=== PATIENT | female | born 1950 | race Caucasian/White ===

== ENCOUNTER 2024-07-28 18:30 | Emergency (ER) | payer SELFPAY ==
--- NOTE | ~2024-07-28 | CT_ITS ---
CLINICAL HISTORY: fall CT head without contrast Comparison: None Findings: No acute intracranial hemorrhage. Mild white matter lesions likely due to small-vessel ischemic disease. No large arterial territorial infarction by CT. Mild volume loss is generalized. Cavum velum interpositum. Artifacts noted including portions of the parietal and occipital lobes. Soft tissue swelling scalp hematoma including of the left frontal convexity. Left-sided periorbital soft tissue swelling appears preseptal. Left lateral parietal scalp calcification is nonspecific and likely chronic. No acute skull fracture. Mild mucosal thickening of the imaged paranasal sinuses. Imaged mastoid air cells are well aerated. IMPRESSION: 1. No acute intracranial abnormality by CT. This document has been electronically signed by: Gwyn Santana MD on 07/28/2024 21:01:19
--- NOTE | ~2024-07-28 | CT_ITS ---
CLINICAL HISTORY: fall CT cervical spine without contrast Comparison: None Findings: No acute fracture of the cervical spine. Mild anterolisthesis at C3-C4. Disc osteophyte complexes with mild spinal canal stenosis from C3-C4 to C6-C7. Multifocal foraminal narrowing including moderate left-sided foraminal narrowing from C4-C5 to C6-C7 and moderate to severe foraminal narrowing on the right at C5-C6. Facet arthropathy and ligament calcifications are multifocal. No paraspinal hematoma. Vascular calcifications of the metal artifacts noted. Enlargement of the imaged left lobe of the thyroid is nonspecific question 3 cm nodule. Trachea is deviated to the right. IMPRESSION: 1. No acute fracture of the cervical spine. 2. Enlargement of the left lobe of the thyroid with [address] Recommend outpatient thyroid ultrasound This document has been electronically signed by: Gwyn Santana MD on 07/28/2024 20:48:08
--- NOTE | ~2024-07-28 | XR_ITS ---
CLINICAL HISTORY: fall --- Additional Notes or Special Instructions: pt collared 1935 - CF 2 view left shoulder Comparison: None Findings: Lucency of the inferior medial aspect of the left humerus head appears old/chronic. No acute displaced fracture or dislocation of the left shoulder. Left inferior glenoid irregularity appears chronic given sclerosis. Mild moderate osteoarthritis of the left glenohumeral joint. Mild to moderate osteoarthritis of the left AC joint. Bilateral pulmonary opacities nonspecific and may reflect combination of the atelectasis, pneumonitis , and pulmonary edema. Emphysematous changes also in the [id number]. Mediastinum accentuated by AP magnification. Superficial opacities present. IMPRESSION: 1. No acute fracture or dislocation of the left shoulder. 2. Mild-moderate osteoarthritis of the left shoulder. This document has been electronically signed by: Gwyn Santana MD on 07/28/2024 21:56:56
[2024-07-28 18:38] VITALS: BP 174/116; PULSE 76; O2SAT 99
[2024-07-28 18:41] VITALS: BP 191/115; PULSE 96; RESP 18; O2SAT 100; BMI 29.0
[2024-07-28 18:45] VITALS: BP 177/96; PULSE 98; RESP 18; TEMP 36.8; O2SAT 100
[2024-07-28 18:49] VITALS: BP 177/96; PULSE 98; RESP 18; TEMP 36.8; O2SAT 100
--- NOTE | 2024-07-28 19:15 | ED.FALL ---
HPI - Fall General Chief Complaint: Fall Stated Complaint: fall, headstrike, facial injury, hematoma on L eye Time Seen by Provider: 07/28/24 18:44 Source: patient Mode of arrival: EMS Limitations: no limitations History of Present Illness ED Provider: HPI Narrative: Patient apparently trying to get out of the house for got there was a step tripped and fell tried to break the fall with her left hand complaining of pain in the left shoulder and swelling of the left forehead no loss of consciousness no other injuries patient not on any anticoagulation Related Data Allergies Allergy/AdvReac Type Severity Reaction Status Date / Time Sulfa (Sulfonamide Allergy Unknown Verified 07/28/24 18:45 Antibiotics) Review of Systems Review of Systems: Yes all other systems are reviewed and are negative [facility] Social History Social History Alcohol intake: never Smoked in Last 30 Days: No Use of substances other than those prescribed or required for medical reasons: No Advance Directives: No Advance Directives Information Provided: Yes Physical Exam Vital Signs: Vital Signs: Last Vital Signs Temp 0 F L 07/28/24 22:54 Pulse 82 07/28/24 22:54 Resp 16 07/28/24 22:54 BP 127/79 07/28/24 22:54 Pulse Ox 96 07/28/24 22:54 O2 Del Method Room Air 07/28/24 22:54 BMI result Body Mass Index 29.0 Appearance: Alert. Oriented X3. No acute distress. Eyes: No pallor or icterus ENT: Pharynx normal. Oral Mucosa moist Neck: Normal inspection. Neck supple. No midline tenderness CVS: Normal heart rate and rhythm. Pulses normal. Respiratory: No respiratory distress. Equal air entry bilateral, no wheezing/rales/rhonchi Abdomen: Soft and nontender. Bowel sounds are present, no mass palpable, no CVA tenderness Skin: Skin warm and dry. Normal skin color. Normal skin turgor. Extremities: No lower extremity edema. No calf tenderness, diffuse tenderness left shoulder no deformity Neuro: Oriented X 3. No motor deficit. No sensory deficit.No cerebellar signs , cranial nerves II-XII intact Medical Decision Making Medical Decision Making MDM Narrative: Patient is status post mechanical fall head CT negative for acute cervical spine also negative for acute shoulder x-ray also negative for fracture patient is able to ambulate in the ED able to move her left arm without any difficulty will discharge patient home Independent Interpretation I performed an independent interpretation of an: Plain X-Ray and CT Scan Interpretation: No acute fracture Radiology Impression Discussion of test interpretation with radiology: I have reviewed the radiologist's reading. Discharge Plan Discharge Clinical Impression: Fall (on) (from) other stairs and steps, initial encounter Patient Disposition: Home, Self-Care Instructions: Fall Prevention (ED) Additional Instructions: Care and cautions as advised Tylenol/Motrin for pain Interventions: ED Discharge Assessment Last Done: 07/28/24 22:54 Discharge Date/Time: 07/28/24 22:56 Print Language: Luxembourger
[2024-07-28 21:25] VITALS: BP 141/84; PULSE 80; TEMP 36.5; O2SAT 96
--- OUTSIDE RECORDS SUMMARY | 2024-07-28 21:52 | XMS_ITS | Clinical Summary ---
Author Organization [facility] Address [address] [place] [id number] Care Team Providers Care Contract Law Specialist Name Role Phone Pcp), No Pcp (Pt Has No Primary Care Provider Un available Allergies Active Allergy Reactions Criticality Noted Date Comments Sulfa (Sulfonamide Antibiotics) Other (see comments) 10/05/2017 Hallucinations Medications ibuprofen (ADVIL,MOTRIN) 600 MG tablet Take 1 tablet (600 mg per dose) by mouth every 6 (six) hours as needed (PAIN / INFLAMMATIO N). 20 tablet 10/05/2017 Active Social History Tobacco Use Types Packs/Day Years Used Date Smoking Tobacco: Never Smokeless Tobacco: Never Alcohol Use Standard Drinks/Week Comments No 0 (1 standard drink = 0.6 oz pur e alcohol) Comments Unknown Sex and Gender Information Value Date Recorded Sex Assigned at Not on file Legal Sex Female 4:48 AM EDT Gender Identity Not on file Sexual Orientation Not on file Last Filed Vital Signs Vital Sign Reading Time Taken Comments Blood Pressure 129/72 10/05/2017 6:19 AM EDT Pulse 89 10/05/2017 6:19 AM EDT Temperature 36.5 ??C (97.7 ??F) 10/05/2017 4:50 AM ED T Respiratory Rate 18 10/05/2017 6:19 AM EDT Oxygen Saturation 97% 10/05/2017 6:19 AM EDT Inhaled Oxygen Concentration - - Weight - - Height - - Body Mass Index - - Plan of Treatment Not on file Care Teams Contract Law Specialist Relationship Specialty Start Date End Date Pcp), No Pcp (Pt Has No PT HAS NO PCP PCP - General 10/05/17
[2024-07-28 22:54] VITALS: BP 127/79; PULSE 82; RESP 16; TEMP -17.7; TEMP 0; O2SAT 96
== END 2024-07-28 22:56 | disposition home or self-care (01) ==
PROVIDERS: Emergency Provider Internal Medicine
DX: M25.512 Pain in left shoulder (principal); Z91.81 History of falling
CPT/HCPCS: 70450; 72125; 73030; 99284

== ENCOUNTER → 2024-07-28 19:20 | Outpatient (BNV) | payer SELFPAY | PROVIDERS: Emergency Provider Internal Medicine; Visit Provider Radiology Neuroradiology | DX: E04.1 Nontoxic single thyroid nodule (principal); S00.03XA Contusion of scalp, initial encounter; M19.012 Primary osteoarthritis, left shoulder; W19.XXXA Unspecified fall, initial encounter | CPT/HCPCS: 70450; 72125; 73030 ==

== ENCOUNTER 2024-08-01 16:26 | Emergency (ER) | payer SELFPAY ==
--- NOTE | ~2024-08-01 | XR_ITS ---
CLINICAL HISTORY: trauma Single view of the chest with left rib films. COMPARISON: None FINDINGS: Normal heart and mediastinal contours. No consolidation. No pleural effusion or pneumothorax. Minimally displaced lateral left 7th rib fracture. Likely nondisplaced lateral left 8th rib fracture. IMPRESSION: 1. Minimally displaced lateral left 7th rib fracture. Likely nondisplaced lateral left 8th rib fracture. This document has been electronically signed by: Sekou Ward MD on 08/01/2024 17:41:19
--- NOTE | ~2024-08-01 | CT_ITS ---
CLINICAL HISTORY: left rib fx,multipe fxs? CT chest without contrast Comparison: CR - XR RIBS LT MIN 3V W CXR1V - 08/01/24 17:16 EDT Findings: Heart size is normal. Within the left lobe of the thyroid gland there is a cystic 3.3 cm lesion. Right lobe of the thyroid gland is normal. No pleural effusion. No pneumothorax. Lungs are clear. The visualized upper abdomen is unremarkable. There is a dextroscoliosis of the thoracolumbar junction with a rotatory component. Minimally displaced lateral left 7th rib fracture. Other rib fracture seen. Multilevel degenerative changes of the thoracic spine. Thoracic vertebral body heights are preserved. No acute fracture deformity of the thoracic spine. No fracture deformity of the sternum. IMPRESSION: 1. Minimally displaced lateral left 7th rib fracture. 2. Cystic lesion within the left thyroid lobe measuring 3.3 cm. This document has been electronically signed by: Arturo Clark MD on 08/01/2024 21:48:09
[2024-08-01 16:32] VITALS: BP 151/74; PULSE 88; RESP 16; TEMP 36.4; O2SAT 97; BMI 27.4
--- NOTE | 2024-08-01 16:34 | ECG_ITS ---
Test Reason : PAIN Blood Pressure : */* mmHG Vent. Rate : 83 BPM Atrial Rate : 83 BPM P-R Int : 132 ms QRS Dur : 76 ms QT Int : 380 ms P-R-T Axes : 140 -20 108 degrees QTcB Int : 446 ms Unusual P axis, possible ectopic atrial rhythm Cannot rule out Anterior infarct , age undetermined Abnormal ECG No previous ECGs available Referred By: Stewart Teixeira Electronically Signed By: Jose Christy
--- NOTE | 2024-08-01 16:35 | ED_ITS ---
HPI - General Adult General Chief complaint: General Medical Stated complaint: Fall - wrist & rib pain Time Seen by Provider: 08/01/24 19:09 Source: patient Limitations: no limitations History of Present Illness ED Provider: Mily Mendoza PA-C HPI narrative: 74-year-old female presents with left chest wall pain x1 week. Patient states she tripped and fell last week, landing on her left side. She has had ongoing rib pain that has worse today. Denies shortness of breath, cough or fever. Patient is not on a blood thinner. Related Data Allergies Allergy/AdvReac Type Severity Reaction Status Date / Time Sulfa (Sulfonamide Allergy Unknown Verified 08/01/24 16:35 Antibiotics) Review of Systems 2 Review of Systems: Yes all other systems are reviewed and are negative Constitutional: Constitutional: Denies fatigue and Denies fever(s) Cardiovascular: Cardiovascular: Reports chest pain and Denies dyspnea Respiratory: Respiratory: Denies chest congestion, Denies cough and Denies dyspnea Gastrointestinal: Gastrointestinal: Denies abdominal pain, Denies nausea and Denies vomiting Endocrine: Endocrine: Denies fatigue [facility] Past Medical History Attestation statement: The following information was validated with the patient. Social History Social History Alcohol intake: never Smoked in Last 30 Days: No Use of substances other than those prescribed or required for medical reasons: No Advance Directives: No Advance Directives Information Provided: No Do you have a plan to hurt others: No Plan Physical Exam ED Vital Signs: Vital Signs - 24 hr 08/01/24 16:32 08/01/24 17:50 08/01/24 19:52 Temperature 97.5 F 98.4 F 97.8 F Pulse Rate 88 78 82 Respiratory Rate 16 15 18 Blood Pressure 151/74 H 142/70 H 155/77 H Pulse Oximetry 97 99 100 Oxygen Delivery Method Room Air Room Air Room Air 08/01/24 21:48 Temperature 97.8 F Pulse Rate 79 Respiratory Rate 16 Blood Pressure 150/78 H Pulse Oximetry 96 Oxygen Delivery Method Room Air BMI result Body Mass Index 27.4 Const Other: Alert well-appearing Orientation/consciousness: patient oriented x3 Eyes Other: Subacute periorbital ecchymosis on the left Resp Effort & Inspection: normal respiratory effort Cardio Other: Normal peripheral perfusion Skin Other: Warm dry no rash Neuro General: patient oriented x3, gait normal, no focal motor deficits and CN's II- XI intact bilaterally Psych Other: Cooperative Course Course Course Narrative: RME, this is a rapid medical exam performed by Miguel Teixeira please refer to primary provider for complete H&P- 74-year-old female presents for evaluation of left chest wall pain after falling 4 days ago. She was seen here and had imaging of her head, cervical spine and shoulder but not of the ribs or chest. Plan for labs, EKG and x-ray of the ribs with PA chest. Medical Decision Making Medical Decision Making [facility] Narrative: 74-year-old female presents with left chest wall pain x1 week. Patient states she tripped and fell last week, landing on her left side. She has had ongoing rib pain that has worse today. Denies shortness of breath, cough or fever. Patient is not on a blood thinner. No relevant chronic issues History: Per patient I have considered the following differential diagnoses: Chest wall contusion, rib fracture, pneumonia, lung contusion Plan: Chest x-ray reveals isolated rib fracture with a questionable rib fracture of the 8th rib on the left, we will obtain a CT scan. The patient's pain is currently controlled. There was no pneumonia on chest x-ray. Chest x-ray: MPRESSION: 1. Minimally displaced lateral left 7th rib fracture. Likely nondisplaced lateral left 8th rib fracture. CT chest:MPRESSION: 1. Minimally displaced lateral left 7th rib fracture. 2. Cystic lesion within the left thyroid lobe measuring 3.3 cm. Lab Data 08/01/24 16:59 08/01/24 16:59 Labs: Lab Results 08/01/24 Range/Units 16:59 WBC 11.6 H (4.8-10.8) X10*3/uL RBC 4.06 L (4.20-5.50) X10*6/uL Hgb 11.2 L (12.0-16.0) g/dl Hct 36.2 L (37.0-47.0) % MCV 89.2 (80.0-98.0) fL MCH 27.6 (27.0-33.0) pg MCHC 30.9 L (31.0-35.0) g/dl RDW 13.8 (11.0-16.0) % Plt Count 369 (160-400) X10*3/uL MPV 10.1 (9.4-12.3) fL Immature Gran % (Auto) 0.4 (0.0-0.4) % Neut % (Auto) 65.7 (45-73) % Lymph % (Auto) 22.5 (20-40) % Harnett % (Auto) 8.3 (2-11) % Eos % (Auto) 2.4 (0-4) % Baso % (Auto) 0.7 (0-2) % Lymph # (Auto) 2.6 (1.2-4.9) X10*3/uL Harnett # (Auto) 1.0 (0.1-1.2) X10*3/uL Eos # (Auto) 0.3 (0.0-0.4) X10*3/uL Baso # (Auto) 0.1 (0.0-0.2) X10*3/uL Abs Immat Gran (auto) 0.05 H (0.00-0.03) X10*3/uL Absolute Neuts (auto) 7.6 (2.0-8.3) x10*3/uL Absolute Nucleated RBC 0.000 (0.0-0.012) X10*3/uL Nucleated RBC % (auto) 0.0 (0.0-0.2) /100WBC Sodium 141 (135-145) mmol/L Potassium 4.3 (3.3-5.1) mmol/L Chloride 109 H (96-108) mmol/L Carbon Dioxide 24 (22-29) mmol/L Anion Gap 12 (12-20) BUN 24 H (9-16) mg/dL Creatinine 0.92 (0.5-1.4) mg/dL Estim Creat Clear Calc 58.1 Estimated GFR 60 Random Glucose 102 (60-115) mg/dL Calcium 9.2 (8.4-10.2) mg/dL Total Bilirubin 0.2 (0.0-1.0) mg/dL AST 23 (5-31) U/L ALT 19 (0-31) U/L Alkaline Phosphatase 101 (39-117) U/L Troponin I High Sens < 2.7 (<3.5-17.0) ng/L Total Protein 7.2 (6.5-8.0) g/dL Albumin 4.2 (3.5-5.0) g/dL Lipase 43 (8-78) U/L Discharge Plan Discharge Clinical Impression: Fracture of left seventh rib, Left thyroid nodule Patient Disposition: Home, Self-Care Instructions: Rib Fracture (ED), Thyroid Nodules (ED) Additional Instructions: The CT scan revealed that you have a rib fracture of the 7th rib. See home care instructions. You were incidentally found to have a 3.3 cm cyst on the left thyroid. Call your primary care provider, you will require an outpatient ultrasound for further assessment. You can use [id number] Tylenol 1000 mg taken every 8 hours, alternated with [id number] ibuprofen 600 mg taken every 6 hours with food. Print Language: Kosovan
[2024-08-01 17:04] LABS: MANUAL DIFF FLAG NO
[2024-08-01 17:11] LABS: Basophils Absolute Auto 0.1 X10*3/uL (0.0-0.2); Basophils Percent Auto 0.7 % (0-2); Eosinophils Absolute Auto 0.3 X10*3/uL (0.0-0.4); Eosinophils Percent Auto 2.4 % (0-4); Hematocrit 36.2 % (37.0-47.0); Hemoglobin 11.2 g/dl (12.0-16.0); Imm Gran Abs Auto 0.05 X10*3/uL (0.00-0.03); Imm Gran Pct Auto 0.4 % (0.0-0.4); Lymphocytes Absolute Auto 2.6 X10*3/uL (1.2-4.9); Lymphocytes Percent Auto 22.5 % (20-40); Mean Corpuscular HGB Conc 30.9 g/dl (31.0-35.0); Mean Corpuscular Hemoglobin 27.6 pg (27.0-33.0); Mean Corpuscular Volume 89.2 fL (80.0-98.0); Mean Platelet Volume 10.1 fL (9.4-12.3); Monocytes Percent Auto 8.3 % (2-11); Neutrophils Absolute Auto 7.6 x10*3/uL (2.0-8.3); Neutrophils Percent Auto 65.7 % (45-73); Platelet Count 369 X10*3/uL (160-400); Red Blood Count 4.06 X10*6/uL (4.20-5.50); Red Cell Distribution Width 13.8 % (11.0-16.0); White Blood Count 11.6 X10*3/uL (4.8-10.8)
[2024-08-01 17:19] LABS: Alanine Aminotransferase 19 U/L (0-31); Albumin Level 4.2 g/dL (3.5-5.0); Alkaline Phosphatase 101 U/L (39-117); Anion Gap 12 (12-20); Aspartate Amino Transferase 23 U/L (5-31); Bilirubin Total 0.2 mg/dL (0.0-1.0); Blood Urea Nitrogen 24 mg/dL (9-16); Calcium 9.2 mg/dL (8.4-10.2); Carbon Dioxide 24 mmol/L (22-29); Chloride 109 mmol/L (96-108); Creatinine Clr Calc Pharmacy 58.1; Estimated Glomerular Filt Rate 60; Glucose Random 102 mg/dL (60-115); Lipase 43 U/L (8-78); Potassium 4.3 mmol/L (3.3-5.1); Sodium 141 mmol/L (135-145); Total Protein 7.2 g/dL (6.5-8.0)
[2024-08-01 17:28] LABS: Troponin-I High Sensitivity < 2.7 ng/L (<3.5-17.0)
[2024-08-01 17:50] VITALS: BP 142/70; PULSE 78; RESP 15; TEMP 36.9; O2SAT 99
[2024-08-01 19:52] VITALS: BP 155/77; PULSE 82; RESP 18; TEMP 36.6; O2SAT 100
--- NOTE | 2024-08-01 20:53 | MHC.EDTECH ---
This paint technician and Clair paint technician assisted patient in ambulating to bathroom. Patient has a steady gait, complained of left shoulder soreness and not being able to lift arm too much. Instructions were provided to patient about obtaining urine specimen. While walking back to bed patient did state some slight dizziness. RN noted
[2024-08-01 21:48] VITALS: BP 150/78; PULSE 79; RESP 16; TEMP 36.6; O2SAT 96
[2024-08-01 22:42] VITALS: BP 131/79; PULSE 91; RESP 16; TEMP 36.6; O2SAT 97
== END 2024-08-01 22:43 | disposition home or self-care (01) ==
PROVIDERS: Physician Assistant; Emergency Provider Emergency Medicine
DX: S22.32XA Fracture of one rib, left side, initial encounter for closed fracture (principal); W01.0XXA Fall on same level from slipping, tripping and stumbling without subsequent striking against object, initial encounter; E04.1 Nontoxic single thyroid nodule; R07.81 Pleurodynia; Y93.9 Activity, unspecified; Y92.9 Unspecified place or not applicable; Y99.9 Unspecified external cause status
CPT/HCPCS: 36415; 71101; 71250; 80053; 83690; 84484; 85025; 93005; 99284

== ENCOUNTER → 2024-08-01 16:34 | Outpatient (BNV) | payer SELFPAY | PROVIDERS: Visit Provider Internal Medicine Cardiovascular Disease | DX: R94.31 Abnormal electrocardiogram [ECG] [EKG] (principal); R07.9 Chest pain, unspecified | CPT/HCPCS: 93010 ==

== ENCOUNTER → 2024-08-01 16:35 | Outpatient (BNV) | payer SELFPAY | PROVIDERS: Visit Provider Radiology Diagnostic Radiology | DX: S22.32XA Fracture of one rib, left side, initial encounter for closed fracture (principal); E04.1 Nontoxic single thyroid nodule | CPT/HCPCS: 71101; 71250 ==

== ENCOUNTER 2025-01-16 13:02 | Emergency (ER) | payer SELFPAY ==
--- NOTE | ~2025-01-16 | CT_ITS ---
EXAM: CT HEAD WITHOUT CONTRAST CT CERVICAL SPINE INDICATION: Fall TECHNIQUE: A noncontrast CT scan was performed from the skull base to the vertex. A noncontrast CT scan of the cervical spine was performed from the base of the skull through T1 at 2.5 mm and 0.625 mm collimation. Coronal and sagittal reformats were obtained at the acquisition workstation. This CT examination was performed using dose optimization techniques as appropriate, variously including the following: * Automated exposure control * Adjustment of mA and/or kV according to patient size (this includes techniques or standardized protocols for targeted exams where dose is matched to indication/reason for exam; i.e. extremities or head) * Use of iterative reconstruction technique COMPARISON: CT 07/28/2024 FINDINGS: Head: There is no evidence of acute intracranial hemorrhage or edematous large vessel territorial infarction. No abnormal mass effect or midline shift is seen. Awad to white matter differentiation is well preserved. No abnormal extra-axial fluid collections are identified. Mild cerebral volume loss. Mild deep white matter hypodensity suggesting chronic microangiopathy. Soft tissue swelling and scalp hematoma in the left frontal region. Stable left lateral parietal scalp calcification, appearing chronic. No acute calvarial fracture.. Paranasal sinuses and mastoid air cells are well-aerated. Cervical Spine: The atlantooccipital and atlantoaxial articulations remain well aligned. Predens space is maintained. Stable mild anterolisthesis of C7 on T1. Vertebral body heights are maintained. No evidence of acute fracture. Multilevel disc degeneration, more prominent moderate disc degeneration at C4-5, C5-6, C6-7, C7-T1. Multilevel facet degeneration. No prevertebral soft tissue swelling. Redemonstrated is enlargement of the imaged left lobe of the thyroid, with question of a 3 cm nodule, similar to previous. Lung apices are clear. CT/CT cervical spine wo IV con IMPRESSION: No CT evidence of acute intracranial findings. No CT evidence of acute cervical spine fracture or traumatic malalignment. Cervical spondylosis. Enlargement of the left lobe of the thyroid with a suspected 3 cm nodule. Findings similar to previous. Recommend outpatient thyroid ultrasound. Electronically signed by: Aristides Palafox MD 01/16/2025 02:25 PM [facility]
--- NOTE | ~2025-01-16 | CT_ITS ---
EXAM: CT HEAD WITHOUT CONTRAST CT CERVICAL SPINE INDICATION: Fall TECHNIQUE: A noncontrast CT scan was performed from the skull base to the vertex. A noncontrast CT scan of the cervical spine was performed from the base of the skull through T1 at 2.5 mm and 0.625 mm collimation. Coronal and sagittal reformats were obtained at the acquisition workstation. This CT examination was performed using dose optimization techniques as appropriate, variously including the following: * Automated exposure control * Adjustment of mA and/or kV according to patient size (this includes techniques or standardized protocols for targeted exams where dose is matched to indication/reason for exam; i.e. extremities or head) * Use of iterative reconstruction technique COMPARISON: CT 07/28/2024 FINDINGS: Head: There is no evidence of acute intracranial hemorrhage or edematous large vessel territorial infarction. No abnormal mass effect or midline shift is seen. Awad to white matter differentiation is well preserved. No abnormal extra-axial fluid collections are identified. Mild cerebral volume loss. Mild deep white matter hypodensity suggesting chronic microangiopathy. Soft tissue swelling and scalp hematoma in the left frontal region. Stable left lateral parietal scalp calcification, appearing chronic. No acute calvarial fracture.. Paranasal sinuses and mastoid air cells are well-aerated. Cervical Spine: The atlantooccipital and atlantoaxial articulations remain well aligned. Predens space is maintained. Stable mild anterolisthesis of C7 on T1. Vertebral body heights are maintained. No evidence of acute fracture. Multilevel disc degeneration, more prominent moderate disc degeneration at C4-5, C5-6, C6-7, C7-T1. Multilevel facet degeneration. No prevertebral soft tissue swelling. Redemonstrated is enlargement of the imaged left lobe of the thyroid, with question of a 3 cm nodule, similar to previous. Lung apices are clear. CT/CT head/brain wo IV con IMPRESSION: No CT evidence of acute intracranial findings. No CT evidence of acute cervical spine fracture or traumatic malalignment. Cervical spondylosis. Enlargement of the left lobe of the thyroid with a suspected 3 cm nodule. Findings similar to previous. Recommend outpatient thyroid ultrasound. Electronically signed by: Aristides Palafox MD 01/16/2025 02:25 PM [facility]
--- NOTE | ~2025-01-16 | XR_ITS ---
EXAMINATION: XR KNEE, LEFT CLINICAL INFORMATION: Fall COMPARISON: None available. TECHNIQUE: AP oblique and lateral views of the left knee. FINDINGS: No acute cortical disruption or gross malalignment. Joint space narrowing involving mostly the medial compartment. Small marginal osteophyte formation femoral condyles and tibial plateaus. Small volume suprapatellar bursa joint effusion. No lytic or blastic lesions. No gross soft tissue calcifications. XR/XR knee LT 4V IMPRESSION: Tricompartmental osteoarthrosis/osteoarthritis without acute fracture or trauma-related dislocation. Small volume suprapatellar bursa joint effusion. Electronically signed by: John Toribio MD 01/16/2025 01:44 PM EST
[2025-01-16 13:21] VITALS: BP 166/85; PULSE 106; RESP 20; TEMP 36.2; O2SAT 97; BMI 28.5
--- NOTE | 2025-01-16 13:29 | ED_ITS ---
HPI - General Adult General Chief complaint: Fall Stated complaint: fall Time Seen by Provider: 01/16/25 15:26 Source: patient Mode of arrival: ambulatory Limitations: no limitations History of Present Illness ED Provider: Kamlesh Armas HPI narrative: 74 yold female presents to the ED for slipping on ice and falling and hitting left knee and hit her head. patient denies any loss of conscisouness. Patient states no other complaints Related Data Previous Rx's ?Medication ?Instructions ?Recorded naproxen 500 mg tablet 500 mg PO BID PRN pain #14 t abs 01/16/25 Allergies Allergy/AdvReac Type Severity Reaction Status Date / Time Sulfa (Sulfonamide Allergy Unknown Verified 01/16/25 13:25 Antibiotics) Review of Systems 2 Review of Systems: right frontal hematoma and left knee pain Yes all other systems are reviewed and are negative [facility] Social History Social History Alcohol intake: never Advance Directives: No Advance Directives Information Provided: Yes Do you have a plan to hurt others: No Plan Physical Exam ED Vital Signs: Vital Signs - 24 hr 01/16/25 13:21 Temperature 97.2 F Pulse Rate 106 H Respiratory Rate 20 Blood Pressure 166/85 H Pulse Oximetry 97 Oxygen Delivery Method Room Air BMI result Body Mass Index 28.5 Const Orientation/consciousness: patient oriented x3 HENMT Head: Yes normal to inspection, Yes No palpable skull fracture present, Yes normocephalic and Yes atraumatic Head images: 2 1. frontal hematoma Eyes General: appearance normal, both eyes and all related structures Neck Neck: Yes normal visual inspection, Yes full ROM, Yes no lymphadenopathy, Yes no meningeal signs, Yes trachea midline, Yes supple, No anterior neck swelling and No tender Chest Chest palpation & inspection: normal inspection of the chest and normal palpation of entire chest wall Resp Effort & Inspection: normal respiratory effort and able to speak in complete sentences Auscultation: clear to auscultation bilaterally Cardio Jugular venous distension: no JVD Heart sounds: S1 normal heart sound present and S2 normal heart sound present GI Inspection: Yes normal to inspection Palpation (GI): Soft to palpation, not firm, nontender, no guarding and not rigid General: Yes no CVA tenderness Back/Spine/Pelvis Back: no CVA tenderness and No back tenderness Skin General skin exam: no rashes or lesions noted, elasticity normal and turgor normal Neuro General: patient oriented x3, gait normal, tone normal, moves all extremities, Normal light touch and pain sensation, no meningeal signs, no focal motor deficits, CN's II-XI intact bilaterally and normal sensation to monofilament Extrem General: Yes normal to inspection, Yes full ROM and Yes capillary refill normal Knee images: 2 1. Tenderness on palpation. Negative for erythema, ecchymosis, crepitus, deformity, red streaks. Rest of extremity normal. Motor/neuro/vascular exam intact Psych Appearance: grossly normal, well kempt and not disheveled Course Course Course Narrative: RME: 74 year female presents to ED for falling on ice which caused her to land on her left knee hit her face. Patient has small hematoma in the right forehead. Images ordered Medical Decision Making Medical Decision Making MDM Narrative: [age] year female presents to ED for a mechanical fall.Patient denies any chest pain, abdominal pain, dizziness, or headache before falling. Main complaint of right forehead and left knee pain. Imaging of head CT cervical spine CT negative for any life-threatening traumatic signs. X-ray knee negative for fracture but does show arthritis and joint effusion. Patient explained worrisome signs informed return to the ED immediately. Not suspecting TX, PE, Brain bleed, pulmonary/GI traumatic etiology, neck fracture, or any other life threatening etiology Differential Diagnosis Differential Diagnoses: The differential diagnosis associated with the presentation includes (brain bleed, neck fracture) Admission/Observation Consideration of admission/observation: Escalation of care including admission/observation considered Independent Interpretation I performed an independent interpretation of an: Plain X-Ray and CT Scan Independent Historian Clinical information obtained from an independent historian. History obtained from or confirmed by: Other (patient) Prescription Management I considered prescription management with: Pain Medication Discharge Plan Discharge Clinical Impression: Fall, Head injury, Contusion of knee, Osteoarthritis, Joint effusion of knee Patient Disposition: Home, Self-Care Instructions: Osteoarthritis (ED), Head Injury (ED), Contusion in Adults (ED), Swollen Knee Joint (ED) Additional Instructions: Recommend follow up with primary care provider. Return to the ED immediately for headache nausea vomiting, swelling, redness, stiffness, fever, chills, or any other concerning symptoms. Patient: Maria C Bell MR#: [id number] : 1950 Acct:[id number] Age/Sex: 74 / F ADM Date: 01/16/25 Loc: [facility].ED Attending Dr: Ordering Physician: Kamlesh Armas Date of Service: 01/16/25 Procedure(s): XR knee LT 4V Accession Number(s): [id number] cc: Kamlesh Armas; Physician,Unknown ~ Reason for Exam: Fall EXAMINATION: XR KNEE, LEFT CLINICAL INFORMATION: Fall COMPARISON: None available. TECHNIQUE: AP oblique and lateral views of the left knee. FINDINGS: No acute cortical disruption or gross malalignment. Joint space narrowing involving mostly the medial compartment. Small marginal osteophyte formation femoral condyles and tibial plateaus. Small volume suprapatellar bursa joint effusion. No lytic or blastic lesions. No gross soft tissue calcifications. XR/XR knee LT 4V IMPRESSION: Tricompartmental osteoarthrosis/osteoarthritis without acute fracture or trauma-related dislocation. Small volume suprapatellar bursa joint effusion. Electronically signed by: John Toribio MD 01/16/2025 01:44 PM [facility] Ordering Physician: Kamlesh Armas Date of Service: 01/16/25 Procedure(s): CT head/brain wo IV con Accession Number(s): [id number] cc: Kamlesh Armas; Physician,Unknown ~ Report Number: [id number]: Total DLP = 948.00 mGy-cm Reason for Exam: Fall EXAM: CT HEAD WITHOUT CONTRAST CT CERVICAL SPINE INDICATION: Fall TECHNIQUE: A noncontrast CT scan was performed from the skull base to the vertex. A noncontrast CT scan of the cervical spine was performed from the base of the skull through T1 at 2.5 mm and 0.625 mm collimation. Coronal and sagittal reformats were obtained at the acquisition workstation. This CT examination was performed using dose optimization techniques as appropriate, variously including the following: * Automated exposure control * Adjustment of mA and/or kV according to patient size (this includes techniques or standardized protocols for targeted exams where dose is matched to indication/reason for exam; i.e. extremities or head) * Use of iterative reconstruction technique COMPARISON: CT 07/28/2024 FINDINGS: Head: There is no evidence of acute intracranial hemorrhage or edematous large vessel territorial infarction. No abnormal mass effect or midline shift is seen. Awad to white matter differentiation is well preserved. No abnormal extra-axial fluid collections are identified. Mild cerebral volume loss. Mild deep white matter hypodensity suggesting chronic microangiopathy. Soft tissue swelling and scalp hematoma in the left frontal region. Stable left lateral parietal scalp calcification, appearing chronic. No acute calvarial fracture.. Paranasal sinuses and mastoid air cells are well-aerated. Cervical Spine: The atlantooccipital and atlantoaxial articulations remain well aligned. Predens space is maintained. Stable mild anterolisthesis of C7 on T1. Vertebral body heights are maintained. No evidence of acute fracture. Multilevel disc degeneration, more prominent moderate disc degeneration at C4-5, C5-6, C6-7, C7-T1. Multilevel facet degeneration. No prevertebral soft tissue swelling. Redemonstrated is enlargement of the imaged left lobe of the thyroid, with question of a 3 cm nodule, similar to previous. Lung apices are clear. CT/CT head/brain wo IV con IMPRESSION: No CT evidence of acute intracranial findings. No CT evidence of acute cervical spine fracture or traumatic malalignment. Cervical spondylosis. Enlargement of the left lobe of the thyroid with a suspected 3 cm nodule. Findings similar to previous. Recommend outpatient thyroid ultrasound. Ordering Physician: Kamlesh Armas Date of Service: 01/16/25 Procedure(s): CT cervical spine wo IV con Accession Number(s): [id number] cc: Kamlesh Armas; Physician,Unknown ~ Report Number: [id number]: Total DLP = 0.00 mGy-cm Reason for Exam: Fall EXAM: CT HEAD WITHOUT CONTRAST CT CERVICAL SPINE INDICATION: Fall TECHNIQUE: A noncontrast CT scan was performed from the skull base to the vertex. A noncontrast CT scan of the cervical spine was performed from the base of the skull through T1 at 2.5 mm and 0.625 mm collimation. Coronal and sagittal reformats were obtained at the acquisition workstation. This CT examination was performed using dose optimization techniques as appropriate, variously including the following: * Automated exposure control * Adjustment of mA and/or kV according to patient size (this includes techniques or standardized protocols for targeted exams where dose is matched to indication/reason for exam; i.e. extremities or head) * Use of iterative reconstruction technique COMPARISON: CT 07/28/2024 FINDINGS: Head: There is no evidence of acute intracranial hemorrhage or edematous large vessel territorial infarction. No abnormal mass effect or midline shift is seen. Awad to white matter differentiation is well preserved. No abnormal extra-axial fluid collections are identified. Mild cerebral volume loss. Mild deep white matter hypodensity suggesting chronic microangiopathy. Soft tissue swelling and scalp hematoma in the left frontal region. Stable left lateral parietal scalp calcification, appearing chronic. No acute calvarial fracture.. Paranasal sinuses and mastoid air cells are well-aerated. Cervical Spine: The atlantooccipital and atlantoaxial articulations remain well aligned. Predens space is maintained. Stable mild anterolisthesis of C7 on T1. Vertebral body heights are maintained. No evidence of acute fracture. Multilevel disc degeneration, more prominent moderate disc degeneration at C4-5, C5-6, C6-7, C7-T1. Multilevel facet degeneration. No prevertebral soft tissue swelling. Redemonstrated is enlargement of the imaged left lobe of the thyroid, with question of a 3 cm nodule, similar to previous. Lung apices are clear. CT/CT cervical spine wo IV con IMPRESSION: No CT evidence of acute intracranial findings. No CT evidence of acute cervical spine fracture or traumatic malalignment. Cervical spondylosis. Enlargement of the left lobe of the thyroid with a suspected 3 cm nodule. Findings similar to previous. Recommend outpatient thyroid ultrasound. Electronically signed by: Aristides Palafox MD 01/16/2025 02:25 PM [facility] Prescriptions: New naproxen 500 mg tablet 500 mg PO BID PRN (Reason: pain) Qty: 14 0RF Referrals: [facility]Provider Group, Internal Medicine] - 2 days Referral Note: Fall knee contusion Clinical Impression: Joint effusion of knee; Contusion of knee; Osteoarthritis; Head injury; Fall [facility] [Provider Group, Orthopedics] - 2 days Referral Note: Fall, knee contusion, osteoarthritis, joint effusion Clinical Impression: Joint effusion of knee; Contusion of knee; Osteoarthritis; Head injury; Fall Stand Alone Forms: Work/School Release Interventions: ED Discharge Assessment Last Done: 01/16/25 17:09 Discharge Date/Time: 01/16/25 17:09 Print Language: Italian
[2025-01-16 17:09] VITALS: BP 166/85; PULSE 106; RESP 20; TEMP 36.2; O2SAT 97
--- OUTSIDE RECORDS SUMMARY | 2025-01-16 18:36 | XMS_ITS | Clinical Summary ---
Author Organization [facility] Address [address] [place] [id number] Care Team Providers Care Script Developer Name Role Phone Pcp), No Pcp (Pt [...] 89 10/05/2017 6:19 AM EDT Temperature 36.5 C (97.7 F) 10/05/2017 4:50 AM EDT Respiratory Rate 18 10/05/2017 6:19 AM EDT Oxygen Saturation 97% 10/05/2017 6:19 AM EDT Inhaled Oxygen Concentration - - Weight - - Height - - Body Mass Index - - Plan of Treatment Not on file Care Teams Script Developer Relationship Specialty Start Date End Date Pcp), No Pcp (Pt Has No PT HAS NO PCP PCP - General 10/05/17
== END 2025-01-16 17:09 | disposition home or self-care (01) ==
PROVIDERS: Emergency Provider Emergency Medicine
DX: S09.90XA Unspecified injury of head, initial encounter (principal); S80.02XA Contusion of left knee, initial encounter; W00.0XXA Fall on same level due to ice and snow, initial encounter; Y93.29 Activity, other involving ice and snow; Y92.9 Unspecified place or not applicable; M25.462 Effusion, left knee
CPT/HCPCS: 70450; 72125; 73564; 99282; 99284

== ENCOUNTER → 2025-01-16 13:27 | Outpatient (BNV) | payer SELFPAY | PROVIDERS: Visit Provider Radiology Diagnostic Radiology | DX: Z04.3 Encounter for examination and observation following other accident (principal); M47.812 Spondylosis without myelopathy or radiculopathy, cervical region; M17.12 Unilateral primary osteoarthritis, left knee; M25.462 Effusion, left knee | CPT/HCPCS: 70450; 72125; 73564 ==

== ENCOUNTER 2025-02-05 15:06 | Emergency (ER) | payer MEDICARE, SELFPAY ==
--- NOTE | ~2025-02-05 | CT_ITS ---
CLINICAL HISTORY: fall. right ear lump CT Head Without Contrast: Comparison: 01/16/2025 Findings: Cortical sulci are symmetric Basal ganglia are unremarkable No shift in midline structures No intraparenchymal bleeding or abnormal extra axial blood fluid collections Normal pituitary size Clear paranasal sinuses. Mastoid air cells and middle ear cavities are unremarkable. The selection Unremarkable orbital structures No depressed fractures Impression: Unremarkable CT of the head, no signs of acute trauma. Right ear external auditory canal is unremarkable. No CT evidence of right temporal bone abnormality or focal soft tissue mass or nodule. No soft tissue radiopaque foreign body. This document has been electronically signed by: Jeovany Pride MD on 02/05/2025 17:26:01
--- NOTE | ~2025-02-05 | CT_ITS ---
CLINICAL HISTORY: Fall CT cervical spine without contrast Comparison: 01/16/2025 Findings: Craniocervical junction is normal. Normal limited view of the intracranial contents. Soft tissues of the neck are normal. Lung apices are clear. Normal vertebral body alignment. No fractures or dislocations. There is moderate degenerative narrowing of C6-7 disc space. There is uncovertebral joint and facet hypertrophy with moderate bilateral foraminal stenosis at C5-6 and C6-7 on the left. Facet joints are in good alignment. No epidural hematoma. Impression: Degenerative changes with no signs of acute skeletal trauma. 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
--- NOTE | ~2025-02-05 | CT_ITS ---
CLINICAL HISTORY: right facial pain. fall CT maxillofacial without contrast Comparison: None Findings: No fractures. Paranasal sinuses and mastoid air cells are clear. Middle ear cavities are clear. [employer] spaces are normal. Buccal spaces are normal. Parapharyngeal fat planes are symmetric. Retropharyngeal space is normal. There is prominence of the base of the tongue in the right side which may be due to swallowing. Aryepiglottic folds and piriform sinuses are unremarkable. Vallecula and epiglottis are normal. Orbits normal. Temporomandibular joints intact. Visualized intracranial contents are normal. No nasal bone fractures. Zygomatical temporal arches are unremarkable. Inferior nasal maxillary spine is unremarkable. Proximal cervical spine is unremarkable. Visualized portions of craniocervical junction are normal. Soft tissues unremarkable. Specifically no signs of soft tissue mass or nodule or radiopaque foreign body in the region of the right ear. Impression: Normal maxillofacial CT. No signs of acute skeletal trauma. No CT evidence of radiopaque foreign body or nodule or soft tissue mass in the region of the right ear. If symptoms persist, repeat CT with skin marker designating region of interest may improve diagnostic accuracy. This document has been electronically signed by: Jeovany Pride MD on 02/05/2025 17:36:04
[2025-02-05 15:28] VITALS: BP 159/73; PULSE 92; RESP 20; TEMP 36.3; O2SAT 96; BMI 30.1
--- NOTE | 2025-02-05 16:47 | ED_ITS ---
HPI - General Adult General Chief complaint: Fall Stated complaint: ?Behind R ear infection Time Seen by Provider: 02/05/25 15:33 Source: patient Mode of arrival: ambulatory Limitations: no limitations History of Present Illness ED Provider: Kamlesh Gómez HPI narrative: 74-year-old female presents to the ED for evaluation of lump on right ear after falling and hitting head/ear/and right side of face. Patient denies any loss of consciousness. Patient denies being on any blood thinner. Patient fell because she slipped. Related Data Previous Rx's ?Medication ?Instructions ?Recorded naproxen 500 mg tablet 500 mg PO BID PRN pain #14 t abs 01/16/25 Allergies Allergy/AdvReac Type Severity Reaction Status Date / Time Sulfa (Sulfonamide Allergy Unknown Verified 02/05/25 15:33 Antibiotics) Review of Systems 2 Review of Systems: Smell Sarina right ear occurred after falling Yes all other systems are reviewed and are negative [facility] Social History Social History Alcohol intake: never Advance Directives: No Advance Directives Information Provided: No Physical Exam ED Vital Signs: Vital Signs - 24 hr 02/05/25 15:28 Temperature 97.4 F Pulse Rate 92 Respiratory Rate 20 Blood Pressure 159/73 H Pulse Oximetry 96 Oxygen Delivery Method Room Air BMI result Body Mass Index 30.1 Const General: cooperative, healthy appearing, comfortable, no acute distress, well developed, alert, awake and Physically active Orientation/consciousness: patient oriented x3 HENMT Head: Yes normal to inspection, Yes No palpable skull fracture present, Yes normocephalic and Yes atraumatic Ears: hearing grossly normal bilaterally, external ears normal, TM's normal bilaterally, TM normal on the right, TM normal on the left, EAC's normal, mastoids normal and no periauricular adenopathy Outer ear/TM images: 2 1. Right posterior ear small abrasiosn. NO mass fluctulance. Negative for pus discharge, foul odor, ecchymosis, laceration, or deformity. Rest of HEENT normal. Eyes General: appearance normal, both eyes and all related structures Neck Neck: Yes normal visual inspection, Yes full ROM, Yes no lymphadenopathy, Yes no meningeal signs, Yes trachea midline, Yes supple, No anterior neck swelling and No tender Chest Chest palpation & inspection: normal inspection of the chest and normal palpation of entire chest wall Resp Effort & Inspection: normal respiratory effort and able to speak in complete sentences Auscultation: clear to auscultation bilaterally Cardio Jugular venous distension: no JVD Heart sounds: S1 normal heart sound present and S2 normal heart sound present GI Inspection: Yes normal to inspection Palpation (GI): Soft to palpation, not firm, nontender, no guarding and not rigid General: Yes no CVA tenderness Back/Spine/Pelvis Back: no CVA tenderness and No back tenderness Skin General skin exam: no rashes or lesions noted, elasticity normal and turgor normal Neuro General: patient oriented x3, gait normal, tone normal, moves all extremities, Normal light touch and pain sensation, no meningeal signs, no focal motor deficits, CN's II-XI intact bilaterally and normal sensation to monofilament Extrem General: Yes normal to inspection, Yes full ROM and Yes capillary refill normal Psych Appearance: grossly normal, well kempt and not disheveled Medical Decision Making Medical Decision Making MDM Narrative: [age] year female presents to ED for evaluation for lump on posterior ear abrasion after falling. Sent for imaging of the head and neck and facial CAT scan. 6:09pm: Images are normal. Patient explained worrisome signs informed return to the ED immediately. Not suspecting mastoiditis, osteomyelitis, meningitis, cellulitis, carotid vertebral dissection, TM perforation or any other life- threatening etiology Differential Diagnosis Differential Diagnoses: The differential diagnosis associated with the presentation includes (Fall abrasion contusion brain bleed cervical spine fracture) Admission/Observation Consideration of admission/observation: Escalation of care including admission/observation considered Independent Interpretation I performed an independent interpretation of an: CT Scan Radiology Impression Discussion of test interpretation with radiology: I have reviewed the radiologist's reading. Independent Historian Clinical information obtained from an independent historian. History obtained from or confirmed by: Other (patient) Discharge Plan Discharge Clinical Impression: Fall, Head injury, Abrasion, Contusion Patient Disposition: Home, Self-Care Instructions: Fall Prevention for Older Adults (ED), Head Injury (ED), Bone Bruise (ED) Additional Instructions: Recommend follow-up with primary care provider. Return to the ED for any headache, nausea, vomiting, redness, swelling of ear, fever, chills, loss of hearing, chest pain, shortness of breath, dizziness, ringing in the ear, pus discharge, foul odor, or any other concerning symptoms. You can use your [id number] Tylenol or Motrin for pain relief Ordering Physician: Kamlesh Gómez Date of Service: 02/05/25 Procedure(s): CT facial bones wo IV con Accession Number(s): [id number] cc: Kamlesh Gómez; Physician,None ~ Report Number: [id number]: Total DLP = 289.00 mGy-cm Reason for Exam: right facial pain. fall CLINICAL HISTORY: right facial pain. fall CT maxillofacial without contrast Comparison: None Findings: No fractures. Paranasal sinuses and mastoid air cells are clear. Middle ear cavities are clear. [employer] spaces are normal. Buccal spaces are normal. Parapharyngeal fat planes are symmetric. Retropharyngeal space is normal. There is prominence of the base of the tongue in the right side which may be due to swallowing. Aryepiglottic folds and piriform sinuses are unremarkable. Vallecula and epiglottis are normal. Orbits normal. Temporomandibular joints intact. Visualized intracranial contents are normal. No nasal bone fractures. Zygomatical temporal arches are unremarkable. Inferior nasal maxillary spine is unremarkable. Proximal cervical spine is unremarkable. Visualized portions of craniocervical junction are normal. Soft tissues unremarkable. Specifically no signs of soft tissue mass or nodule or radiopaque foreign body in the region of the right ear. Impression: Normal maxillofacial CT. No signs of acute skeletal trauma. No CT evidence of radiopaque foreign body or nodule or soft tissue mass in the region of the right ear. If symptoms persist, repeat CT with skin marker designating region of interest may improve diagnostic accuracy. This document has been electronically signed by: Jeovany Pride MD on 02/05/2025 17:36:04 Ordering Physician: Kamlesh Gómez Date of Service: 02/05/25 Procedure(s): CT head/brain wo IV con Accession Number(s): [id number] cc: Kamlesh Gómez; Physician,None ~ Report Number: [id number]: Total DLP = 696.00 mGy-cm Reason for Exam: fall. right ear lump CLINICAL HISTORY: fall. right ear lump CT Head Without Contrast: Comparison: 01/16/2025 Findings: Cortical sulci are symmetric Basal ganglia are unremarkable No shift in midline structures No intraparenchymal bleeding or abnormal extra axial blood fluid collections Normal pituitary size Clear paranasal sinuses. Mastoid air cells and middle ear cavities are unremarkable. The selection Unremarkable orbital structures No depressed fractures Impression: Unremarkable CT of the head, no signs of acute trauma. Right ear external auditory canal is unremarkable. No CT evidence of right temporal bone abnormality or focal soft tissue mass or nodule. No soft tissue radiopaque foreign body. This document has been electronically signed by: Jeovany Pride MD on 02/05/2025 17:26:01 Ordering Physician: Kamlesh Gómez Date of Service: 02/05/25 Procedure(s): CT cervical spine wo IV con Accession Number(s): [id number] cc: Kamlesh Gómez; Physician,None ~ Report Number: [id number]: Total DLP = 296.00 mGy-cm Reason for Exam: Fall CLINICAL HISTORY: Fall CT cervical spine without contrast Comparison: 01/16/2025 Findings: Craniocervical junction is normal. Normal limited view of the intracranial contents. Soft tissues of the neck are normal. Lung apices are clear. Normal vertebral body alignment. No fractures or dislocations. There is moderate degenerative narrowing of C6-7 disc space. There is uncovertebral joint and facet hypertrophy with moderate bilateral foraminal stenosis at C5-6 and C6-7 on the left. Facet joints are in good alignment. No epidural hematoma. Impression: Degenerative changes with no signs of acute skeletal trauma. 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
--- OUTSIDE RECORDS SUMMARY | 2025-02-05 17:16 | XMS_ITS | Clinical Summary ---
Author Organization [facility] Address [address] [place] [id number] Care Team Providers Care Meat Stringer Name Role Phone Pcp), No Pcp (Pt [...] of Treatment Not on file Care Teams Meat Stringer Relationship Specialty Start Date End Date Pcp), No Pcp (Pt Has No PT HAS NO PCP PCP - General 10/05/17
[2025-02-05 18:28] VITALS: BP 159/73; PULSE 92; RESP 20; TEMP 36.3; O2SAT 96
== END 2025-02-05 18:30 | disposition home or self-care (01) ==
PROVIDERS: Emergency Provider Emergency Medicine
DX: S09.90XA Unspecified injury of head, initial encounter (principal); S00.411A Abrasion of right ear, initial encounter; W19.XXXA Unspecified fall, initial encounter; Y93.9 Activity, unspecified; Y92.9 Unspecified place or not applicable; R51.9 Headache, unspecified
CPT/HCPCS: 70450; 70486; 72125; 99282; 99284

== ENCOUNTER → 2025-02-05 15:34 | Outpatient (BNV) | payer SELFPAY | PROVIDERS: Emergency Provider Emergency Medicine; Visit Provider Radiology Diagnostic Radiology | DX: H61.891 Other specified disorders of right external ear (principal); R51.9 Headache, unspecified; Z04.3 Encounter for examination and observation following other accident | CPT/HCPCS: 70450; 70486; 72125 ==